=== PATIENT | female | born 1975 | race African-American/Black ===

== ENCOUNTER 2017-03-14 06:23 | Day surgery (SDC) | payer BC ==
[~2017-03-14] VITALS: Ht 167.6 cm; Wt 109.3 kg
[2017-03-14] VITALS (13 sets, daily range): BP systolic 115–144; BP diastolic 72–90
[~2017-03-14 06:23] MED LIST: VITAMIN D400 INTLU ORAL; ceFAZolin 1gm in D5W 55ml IVP ONE; celeBREX 200mg Cap **SURGERY PATIENTS ONLY ORAL ONE; oxyCONTIN 20mg tab ORAL ONE
[2017-03-14] MEDS ORDERED: Midazolam 2mg/2ml Inj ONE ×2 (06:24)
[2017-03-14] MEDS ORDERED: Propofol 10mg/ml 20ml IV ONE ×2 (06:24)
[2017-03-14] MEDS ORDERED: NS Irrig 1000ml ONE (06:24)
[2017-03-14] MEDS ORDERED: fentaNYL 100 mcg/2 mL IV ONE ×2 (06:24)
[2017-03-14] MEDS ORDERED: Ketorolac 30mg Inj ONE (06:28)
[2017-03-14] MEDS ORDERED: Morphine Sulfate PF 10 ML ONE (06:28)
[2017-03-14] MEDS ORDERED: Bupivacaine w/Epi 0.25% 30ml Vial INJ ONE (06:28)
[2017-03-14] MEDS ORDERED: Kenalog-40 1ml Vial ONE (06:28)
[2017-03-14] MEDS ORDERED: Bupivacaine 0.25% Inj 30ml INJ ONE (06:28)
[2017-03-14] MEDS ORDERED: Lidocaine 1% 10mg/ml/Epi 0.005mg/ml 30ml vial INJ ONE (06:28)
--- NOTE | 2017-03-14 07:18 | Pre-Procedure Note/Attestation ---
Pre-Procedure Note/Attestation Complete Prior to Procedure Planned Procedure: left Procedure Narrative: knee arthroscopy, lateral menisectomy Indications for Procedure Pre-Operative Diagnosis: left knee lateral menisecus Attestation I attest that I discussed the nature of the procedure; its benefits; risks and complications; and alternatives (and the risks and benefits of such alternatives ), prior to the procedure, with the patient (or the patient's legal b2b outside sales representative). I attest that, if there was a reasonable possibility of needing a blood transfusion, the patient (or the patient's legal b2b outside sales representative) was given the [facility] standardized written summary, pursuant to the Ray Adriana Blood Safety Act ([place] Health and Safety Code # 1645, as amended). I attest that I re-evaluated the patient just prior to the surgery and that there has been no change in the patient's H&P, except as documented below: ROMERO TEJEDA Mar 14, 2017 07:18
--- NOTE | 2017-03-14 07:19 | Operative Note - PDOC ---
Operative Note Operative Note Pre-op Diagnosis: left knee lateral menisecus Procedure: left knee arthroscopy, lateral menisectomy Post-op Diagnosis: same as pre-op plus Anesthesia: MAC Specimen: none Complications: none Estimated Blood Loss: none Implant(s) used?: No ROMERO TEJEDA Mar 14, 2017 07:19
[2017-03-14] MEDS ORDERED: NS Irrig 4000ml IRRIG ONE (10:32)
[2017-03-14] MEDS ORDERED: Duramorph PF 10mg/10ml amp EPIDUR ONE (10:32)
[2017-03-14] MEDS ORDERED: fentaNYL 100 mcg/2 mL IV PRN (10:45)
[2017-03-14] MEDS ORDERED: Ketorolac 30mg Inj IV PRN (10:45)
[2017-03-14] MEDS ORDERED: Hydromorphone 0.5mg/0.5ml inj IVP PRN (10:45)
[2017-03-14] MEDS ORDERED: Midazolam 2mg/2ml Inj IVP PRN (10:45)
--- NOTE | 2017-03-14 10:47 | Anethesia Preoperative Eval ---
Anesthesia Pre-op PMH/ROS General Date of Evaluation: Mar 14, 2017 Time of Evaluation: 09:30 Anesthesiologist: marla ASA Score: ASA 1 Mallampati Score Class I : Soft palate, uvula, fauces, pillars visible Class II: Soft palate, uvula, fauces visible Class III: Soft palate, base of uvula visible Class IV: Only hard plate visible Mallampati Classification: Class I Allergies: Coded Allergies: No Known Allergies (Unverified , 03/13/17) Anesthesia Pre-op Phys. Exam Physician Exam Last Vital Signs Date Time Temp Pulse Resp B/P Pulse Ox O2 Delivery O2 Flow Rate FiO2 03/14/17 07:05 97.3 77 20 125/74 100 Room Air Anesthesia Pre-op A/P Labs Urine Test Test 03/14/17 06:35 Urine HCG, Qualitative Negative Reji Boswell MD Mar 14, 2017 10:47
--- NOTE | 2017-03-14 10:59 | Immediate Post-Op Evaluation ---
Immediate Post-Op Evalulation Immediate Post-Op Evalulation Procedure: left knee arthroscopy Date of Evaluation: Mar 14, 2017 Time of Evaluation: 10:59 Nausea: No Vomiting: No Hydration Status: adequate Given Within 1 Hr of Incision: Yes Reji Boswell MD Mar 14, 2017 10:59
[2017-03-14] MEDS ORDERED: Tylenol #3 tab (300mg/30mg) ORAL PRN (17:01)
[2017-03-14] MEDS ORDERED: HYDROmorphone 1mg/ml Carpuject SUBQ PRN (17:01)
[2017-03-14] MEDS ORDERED: Norco 5mg/325mg tab ORAL PRN (17:01)
[2017-03-14] MEDS ORDERED: D5 1/2NS 1,000 ML IV SCH (17:01)
--- NOTE | 2017-03-14 17:30 | Operative Note - Dictated ---
DATE OF OPERATION: 03/14/2017 PREOPERATIVE DIAGNOSES: 1. Left knee lateral meniscus tear. 2. Left knee mild lateral compartment chondral damage. PROCEDURES: 1. Left knee arthroscopic partial lateral meniscectomy. 2. Gentle chondroplasty, lateral tibial chondral damage. 3. Synovectomy lateral patellofemoral compartment. SURGEON: Juaquin Reyes M.D. ANESTHESIA: MAC with local. INDICATION FOR PROCEDURE: The patient is a pleasant female who has had progressive lateral-sided knee pain. She had some mild chondral damage but also had evidence of significant meniscal tear. After failed conservative treatment, she elected to undergo left knee arthroscopic lateral meniscectomy. Risks, limitations, expectations, and complications of the procedure were all discussed in detail. All questions were addressed. DESCRIPTION OF PROCEDURE: Informed consent was obtained. The patient was brought to the operating room and placed under monitored anesthesia control. Tourniquet was applied to the left proximal thigh. Leg was prepped and draped in a sterile manner. Time-out was performed. A 20 mL of 0.25% Marcaine plain injected into the left knee. Portal sites were injected with 1% lidocaine with epinephrine. An Esmarch was used to exsanguinate the extremity. Inferolateral stab incision was then made. Trocar introduced into patellofemoral component. There was significant chondral damage of the patellofemoral compartment. Medial bone was entered, free of any meniscal chondral damage. The anterior cruciate ligament was probed. There was hypertrophic ligamentum mucosum. Medial working portal was established. Debridement of the synovial tissue in the medial intercondylar notch and lateral compartment was performed to better visualize the lateral compartment. There was a tear of the anterior horn lateral meniscus. The camera was then placed in the medial border and partial lateral meniscectomy was performed down to the stable rim of tissue. There is grade 2 chondral damage in the 8 x 10 mm section of the lateral tibial plateau. Gentle chondroplasty was performed. Camera was then repositioned in the patellofemoral compartment. Synovectomy was completed. Once that was done, the instruments removed. Portal sites were closed using 3-0 Monocryl sutures. Steri-Strips and sterile dressing were applied. Intraarticular injection containing 0.5% Marcaine with epinephrine, 40 mg of Kenalog, 30 mg of Toradol, and 5 mL of Duramorph was injected. The patient was awoken and taken to the recovery room with stable vital signs. ESTIMATED BLOOD LOSS: Minimal. COMPLICATIONS: None. SPECIMENS: None. IMPLANTS: None. Juaquin Reyes M.D. DR: Winter JOB#: [id number] CC:
== END 2017-03-14 14:40 | disposition home or self-care (01) ==
LOC: SUR 06:23
DX: M23.242 Derangement of anterior horn of lateral meniscus due to old tear or injury, left knee (principal); M94.9 Disorder of cartilage, unspecified; D64.9 Anemia, unspecified
CPT/HCPCS: 29881; 81025; 97161; J1885; J2250; J2274; J2704; J3010; J3301; J3490; 94003; 94150